=== PATIENT | female | born 1965 | race Caucasian/White ===

== ENCOUNTER 2021-04-29 06:23 | Day surgery (SDC) | payer OTHER, SELFPAY ==
[~2021-04-29] VITALS: Ht 157.5 cm; Wt 67.1 kg
[2021-04-29] MEDS ORDERED: fentaNYL citrate 0.05 MG/ML VIAL ONE (07:28)
[2021-04-29] MEDS ORDERED: PROPOFOL 200 MG/20 ML VIAL IV ONE (07:32)
[2021-04-29] MEDS ORDERED: LIDOCAINE MPF 2% 100 MG/5 ML VIAL INJ ONE (07:32)
[2021-04-29] MEDS ORDERED: ROCURONIUM 50 MG/5 ML VIAL IV ONE (07:32)
[2021-04-29] MEDS ORDERED: BUPIVACAINE-MPF/EPI 0.5% 30 ML VIAL INJ ONE (07:56)
[2021-04-29] MEDS ORDERED: LIDOCAINE 1% 500 MG/50 ML VIAL ONE (07:56)
[2021-04-29] MEDS ORDERED: GELATIN SPONGE 100 1 SPG TP ONE (07:59)
[2021-04-29] MEDS ORDERED: ONDANSETRON 4 MG/2 ML VIAL IVP PRN (08:00)
[2021-04-29] MEDS ORDERED: fentaNYL citrate 0.05 MG/ML VIAL IVP PRN (08:00)
[2021-04-29] MEDS ORDERED: MEPERIDINE 25 MG/ML SYR IVP PRN (08:00)
[2021-04-29] MEDS ORDERED: LACTATED RINGERS 1,000 ML IV SCH (08:00)
[2021-04-29] MEDS ORDERED: oxyCODONE/APAP 5/325 MG 1 TAB TAB PO PRN (08:00)
[2021-04-29] MEDS ORDERED: HYDROGEN PEROXIDE 3% 240 ML BTL TP ONE (08:01)
[2021-04-29] MEDS ORDERED: GLYCOPYRROLATE 0.2 MG/ML VIAL ONE (09:31)
[2021-04-29] MEDS ORDERED: KETOROLAC 30 MG/ML VIAL ONE (09:31)
[2021-04-29] MEDS ORDERED: NEOSTIGMINE 1:1000 10 MG/10 ML VIAL ONE (09:31)
[2021-04-29] MEDS ORDERED: DEXAMETHASONE 4 MG/ML VIAL ONE (09:31)
[2021-04-29] MEDS ORDERED: ONDANSETRON 4 MG/2 ML VIAL ONE (09:32)
--- NOTE | 2021-04-29 10:25 | NUR ---
IV REMOVED ON RIGHT FOREARM, NO BLEEDING NOTED.
--- NOTE | 2021-04-29 10:33 | NUR ---
PATIENT EATING CRACKERS , ABLE TO DRINK WATER AND APPLE JUICE WITHOUT DIFFICULTY
--- NOTE | 2021-04-29 10:37 | NUR ---
DISCHARGED INSTRUCTION GIVEN, AWARE NEED TO FOLLOW UP WITH DR SAXENA, PATIENT ALERT ORIENTED, NO DISTRESS NOTED, NO SOB NOTED.WHEELED TO THE LOBBY, PICKED UP BY SON SON MYRNA
== END 2021-04-29 10:37 | disposition home or self-care (01) ==
LOC: MDS 06:23 → MMU 06:24 → MDS 10:37
PROVIDERS: ATTEND Surgery
DX: K60.1 Chronic anal fissure (principal); J45.909 Unspecified asthma, uncomplicated; Z79.899 Other long term (current) drug therapy; Z20.822 Contact with and (suspected) exposure to COVID-19
CPT/HCPCS: 46200; 71045; 87426; 93005; J1100; J1885; J2001; J2405; J2704; J2710; J3010; J3490; J7030